=== PATIENT | male | born 1980 | race Caucasian/White ===

== ENCOUNTER → 2018-11-18 | Day surgery (SDC) | payer OTHER ==
--- NOTE | 2018-11-19 15:41 | PATH ---
Cytology Non-Gynecological Report Patient Name: SAUL WINTER Med. Rec. #: [id number] /Age/Gender: 1980 (Age: 38) / M Account: [id number] Location: RADIOLOGY INTER Taken: 11/18/2018 Received: 11/18/2018 Reported: 11/19/2018 Physicians: Dre Dickey M.D. Specimen(s) Received LEFT THYROID FNA Clinical History Left, 5.52 x 3.37 x 4.46 cm Final Diagnosis THYROID, LEFT, FINE NEEDLE ASPIRATION: SATISFACTORY FOR EVALUATION. B[place] CLASS II: BENIGN. CYTOLOGIC FINDINGS ARE CONSISTENT WITH A BENIGN FOLLICULAR NODULE. FOLLICULAR CELLS WITH FOCAL REACTIVE CHANGES AND COLLOID PRESENT. Electronically Signed Amber Garner M.D. Gross Description Received are eight direct smears, four of which are air-dried and Diff-Quik stained, and four of which are alcohol fixed and Pap stained. Also received is 20 ml of bloody formalin from which one cellblock is prepared.
== END | disposition home or self-care (01) ==
LOC: JRADIR 08:50
PROVIDERS: ATTEND Family Medicine
PROC: 0G9K3ZX Drainage of Thyroid Gland, Percutaneous Approach, Diagnostic (ICD-10-PCS; principal; 2018-11-18)
DX: E04.1 Nontoxic single thyroid nodule (principal)
CPT/HCPCS: 76942; 88173; 88305-TC

== ENCOUNTER → 2023-06-17 | Day surgery (SDC) | payer OTHER | END | disposition home or self-care (01) | LOC: JRADIR 10:07 | PROVIDERS: ATTEND Internal Medicine Endocrinology, Diabetes & Metabolism | PROC: 0G9G3ZX Drainage of Left Thyroid Gland Lobe, Percutaneous Approach, Diagnostic (ICD-10-PCS; principal; 2023-06-17) | DX: E04.1 Nontoxic single thyroid nodule (principal) | CPT/HCPCS: 10007; 76942 ==

== ENCOUNTER 2024-01-16 14:42 | Inpatient (IN) | payer OTHER ==
[2024-01-16] MEDS ORDERED: DEXAMETHASONE SOD PHOSPHATE 10 MG/1 ML VIAL ONE ×2 (14:51→14:53)
[2024-01-16] MEDS ORDERED: LIDOCAINE HCL 2% (20ML MULTI-DOSE VIAL) ONE (14:56)
[2024-01-16] MEDS ORDERED: GLYCOPYRROLATE 0.2 MG/1 ML VIAL ONE (15:04)
[2024-01-16] MEDS ORDERED: ALBUTEROL SO4 2.5/IPRATROPIUM 0.5 INH SOL 3 ML VIAL.NEB. NEB ONE (15:10)
[2024-01-16 15:16] LABS: VENOUS BASE EXCESS -6.1 mmol/L (-2-2); VENOUS O2 SATURATION 79.9 % (70-80); VENOUS PCO2 56.4 mmHg (38-52); VENOUS PH 7.214 (7.310-7.410)
[2024-01-16 15:18] LABS: BASO % 0.9 % (0-2.0); HEMATOCRIT 39.4 % (35.4-49); HEMOGLOBIN 12.1 GM/dL (11.7-16.9); LYMPH % 35.2 % (8-40); MCH 25.3 pg (25.7-33.7); MCHC 30.6 g/dl (32.0-35.9); MEAN CELL VOLUME 82.4 fl (80-96); MEAN PLT VOLUME 9.8 fl (7.5-11.1); MONO % 8.9 % (3.8-10.2); PLATELET COUNT 337 10^3/uL (134-434); RBC 4.78 M/mm3 (4.00-5.60); RDW 13.8 % (11.9-15.9); WHITE BLOOD COUNT 19.9 K/mm3 (4.0-10.0)
[2024-01-16] MEDS ORDERED: LABETALOL HCL 20 MG/4 ML VIAL ONE (15:20)
[2024-01-16 15:36] LABS: POTASSIUM 3.6 mmol/L (3.5-5.1)
[2024-01-16 15:40] LABS: CALCIUM 9.3 mg/dL (8.5-10.1)
[2024-01-16 15:41] LABS: ALBUMIN 4.1 g/dl (3.4-5.0); BLOOD UREA NITROGEN 15.9 mg/dL (7-18)
[2024-01-16 15:43] LABS: BILIRUBIN,TOTAL 1.3 mg/dL (0.2-1)
[2024-01-16 15:44] LABS: CREATININE 1.3 mg/dL (0.55-1.3)
[2024-01-16] MEDS ORDERED: KETAMINE HCL 500 MG/10 ML VIAL ONE (15:44)
[2024-01-16 15:46] LABS: TOT PROT 7.5 g/dl (6.4-8.2)
[2024-01-16] MEDS ORDERED: MIDAZOLAM HCL 2 MG/2 ML SINGLE DOSE VIAL ONE ×2 (15:48→16:52)
[2024-01-16] MEDS: GLYCOPYRROLATE 1 MG/5 ML VIAL IVPB ONE (15:50)
[2024-01-16] MEDS: DEXAMETHASONE SOD PHOSPHATE 20 MG/5 ML VIAL IVPB ONE (15:50)
[2024-01-16] MEDS: DEXAMETHASONE SOD PHOSPHATE 10 MG/1 ML VIAL IVPUSH ONE (15:50)
[2024-01-16] MEDS ORDERED: LIDOCAINE 1%/EPI 1:100000 (20 ML MULTI DOSE VIAL) ONE (16:01)
[2024-01-16] MEDS: LIDOCAINE 1%/EPI 1:100000 (20 ML MULTI DOSE VIAL) IJ ONE ×2 (16:05)
[2024-01-16] MEDS ORDERED: ROCURONIUM BROMIDE 50 MG/5 ML SYRINGE ONE ×2 (16:11→16:52)
[2024-01-16] MEDS ORDERED: TRANEXAMIC ACID 1000 MG/10 ML VIAL ONE (16:21)
[2024-01-16] MEDS ORDERED: cefOXitin SODIUM 2 GM VIAL (RESTRICTED TO ID) IVPB ONE (16:26)
[2024-01-16] MEDS: cefOXitin SODIUM 1 GM VIAL (RESTRICTED TO ID) IVPB ONE ×2 (16:26→16:28)
[2024-01-16] MEDS: MICROFIBRILLAR COLLAGEN 1 GM EACH TP ONE (16:45)
[2024-01-16] MEDS: FENTANYL NS IVPB 500 MCG/100 ML BAG IVPB SCH ×2 (18:38→19:49)
[2024-01-16] MEDS: PROPOFOL 1,000,000 MCG/100 ML VIAL IVPB SCH (18:39)
[2024-01-16] MEDS: TRANEXAMIC ACID 1000 MG/10 ML VIAL IVPUSH SCH (19:49)
[2024-01-16] MEDS: ALBUTEROL SO4 2.5/IPRATROPIUM 0.5 INH SOL 3 ML VIAL.NEB. NEB SCH (20:05)
[2024-01-16] MEDS: INSULIN ASPART SLIDING SCALE (NOVOLOG) 1 VIAL SQ SCH (21:43)
[2024-01-16] MEDS: DEXAMETHASONE SOD PHOSPHATE 10 MG/1 ML VIAL IVPUSH SCH (21:46)
[2024-01-16] MEDS: ARTIFICIAL TEARS OPHTHALMIC DROPS OU SCH (21:46)
[2024-01-16] MEDS: MUPIROCIN 2% TOPICAL OINTMENT FOR DECOLONIZATION NS SCH (21:46)
[2024-01-16] MEDS: CHLORHEXIDINE GLUCONATE 4% CLEANSER FOR DECOLONIZATION TP SCH (21:47)
[2024-01-16] MEDS: MIDAZOLAM IN 0.9 % SOD.CHLORID 100 MG/100 ML PLAST..BAG IVPB SCH (23:19)
[2024-01-17] MEDS: CEFOXITIN SODIUM 2 GM in DEXTROSE 5%-WATER - 100 ML IVPB SCH (01:28)
[2024-01-17 06:30] LABS: ARTERIAL BLD GAS O2 SATURATION 97.1 % (95-98); ARTERIAL BLOOD GAS BASE EXCESS -0.2 mmol/L (-2-2); ARTERIAL BLOOD GAS PO2 100.2 mmHg (80-100); ARTERIAL BLOOD GAS pH 7.334 (7.350-7.450)
[2024-01-17 06:34] LABS: VENT MODE V-A/C; VENT RATE 12
[2024-01-17 07:38] LABS: BASO % 0.1 % (0-2.0); HEMATOCRIT 33.3 % (35.4-49); HEMOGLOBIN 10.7 GM/dL (11.7-16.9); LYMPH % 8.1 % (8-40); MCH 25.9 pg (25.7-33.7); MCHC 32.1 g/dl (32.0-35.9); MEAN CELL VOLUME 80.6 fl (80-96); MEAN PLT VOLUME 9.6 fl (7.5-11.1); MONO % 4.4 % (3.8-10.2); NEUT % 87.4 % (42.8-82.8); PLATELET COUNT 274 10^3/uL (134-434); RBC 4.13 M/mm3 (4.00-5.60); RDW 13.9 % (11.9-15.9); WHITE BLOOD COUNT 14.5 K/mm3 (4.0-10.0)
[2024-01-17 07:51] LABS: POTASSIUM 4.6 mmol/L (3.5-5.1)
[2024-01-17 07:58] LABS: ALBUMIN 3.4 g/dl (3.4-5.0); CALCIUM 8.8 mg/dL (8.5-10.1); MAGNESIUM 2.3 mg/dL (1.8-2.4)
[2024-01-17 07:59] LABS: BLOOD UREA NITROGEN 12.7 mg/dL (7-18); PHOSPHOROUS 4.6 mg/dL (2.5-4.9)
[2024-01-17 08:00] LABS: BILIRUBIN,TOTAL 0.9 mg/dL (0.2-1); TOT PROT 6.8 g/dl (6.4-8.2)
[2024-01-17 08:09] LABS: INR 1.02 (0.83-1.09); PROTHROMBIN TIME (PATIENT) 11.5 SEC (9.7-13.0)
[2024-01-17] MEDS: PANTOPRAZOLE SODIUM 40 MG VIAL IVPUSH SCH (09:24)
[2024-01-17] MEDS ORDERED: DEXAMETHASONE SOD PHOSPHATE 10 MG/1 ML VIAL IVPUSH SCH ×2 (10:00)
[2024-01-17] MEDS: PIPERACILLIN/TAZOB 4.5 GM 4.5 GM in DEXTROSE 5%-WATER 100 ML IVPB SCH (17:02)
[2024-01-18 06:40] LABS: POTASSIUM 4.4 mmol/L (3.5-5.1)
[2024-01-18 06:45] LABS: CALCIUM 9.3 mg/dL (8.5-10.1)
[2024-01-18 06:46] LABS: ALBUMIN 3.4 g/dl (3.4-5.0); BLOOD UREA NITROGEN 13.8 mg/dL (7-18); MAGNESIUM 2.6 mg/dL (1.8-2.4)
[2024-01-18 06:51] LABS: TOT PROT 6.6 g/dl (6.4-8.2)
[2024-01-18 06:59] LABS: HEMOGLOBIN 10.3 GM/dL (11.7-16.9); LYMPH % 5.2 % (8-40); MCH 26.1 pg (25.7-33.7); MCHC 32.2 g/dl (32.0-35.9); MEAN CELL VOLUME 80.9 fl (80-96); MEAN PLT VOLUME 9.7 fl (7.5-11.1); MONO % 5.8 % (3.8-10.2); PLATELET COUNT 264 10^3/uL (134-434); RBC 3.95 M/mm3 (4.00-5.60); RDW 13.8 % (11.9-15.9); WHITE BLOOD COUNT 16.8 K/mm3 (4.0-10.0)
[2024-01-18] MEDS: amLODIPine BESYLATE 5 MG TABLET (FP) PO ONE (17:32)
[2024-01-18] MEDS: hydrALAZINE HCL 20 MG/ML VIAL IVPUSH PRN (18:12)
[2024-01-18] MEDS: INSULIN ASPART SLIDING SCALE (NOVOLOG) 1 VIAL SQ SCH (19:32)
[2024-01-19 07:12] LABS: POTASSIUM 4.1 mmol/L (3.5-5.1)
[2024-01-19 07:19] LABS: ALBUMIN 3.5 g/dl (3.4-5.0); BLOOD UREA NITROGEN 20.9 mg/dL (7-18); CALCIUM 9.4 mg/dL (8.5-10.1); MAGNESIUM 2.5 mg/dL (1.8-2.4)
[2024-01-19 07:24] LABS: BILIRUBIN,TOTAL 1.6 mg/dL (0.2-1)
[2024-01-19 07:29] LABS: BASO % 0.3 % (0-2.0); HEMATOCRIT 34.6 % (35.4-49); HEMOGLOBIN 10.6 GM/dL (11.7-16.9); MCHC 30.7 g/dl (32.0-35.9); MEAN CELL VOLUME 81.2 fl (80-96); MEAN PLT VOLUME 9.7 fl (7.5-11.1); MONO % 5.3 % (3.8-10.2); NEUT % 86.4 % (42.8-82.8); PLATELET COUNT 292 10^3/uL (134-434); RBC 4.26 M/mm3 (4.00-5.60); RDW 13.8 % (11.9-15.9); WHITE BLOOD COUNT 17.1 K/mm3 (4.0-10.0)
[2024-01-19] MEDS: LISINOPRIL 10 MG TABLET PO SCH (11:36)
[2024-01-19] MEDS: LEVOTHYROXINE NA 88 MCG TABLET (FP) PO SCH (11:36)
[2024-01-19] MEDS: LEVOTHYROXINE NA 100 MCG TABLET (FP) PO SCH (11:36)
[2024-01-19] MEDS ORDERED: hydrALAZINE HCL 20 MG/ML VIAL IVPUSH PRN (17:25)
[2024-01-19] MEDS: PIPERACILLIN/TAZOB 4.5 GM 4.5 GM in DEXTROSE 5%-WATER 100 ML IVPB SCH (17:49)
[2024-01-19] MEDS: ALBUTEROL SO4 2.5/IPRATROPIUM 0.5 INH SOL 3 ML VIAL.NEB. NEB SCH (19:50)
[2024-01-19] MEDS: DEXAMETHASONE SOD PHOSPHATE 10 MG/1 ML VIAL IVPUSH SCH (21:20)
[2024-01-19] MEDS: INSULIN ASPART SLIDING SCALE (NOVOLOG) 1 VIAL SQ SCH (21:21)
[2024-01-19] MEDS: ROSUVASTATIN CA 20 MG TABLET PO SCH (21:21)
[2024-01-19] MEDS: ARTIFICIAL TEARS OPHTHALMIC DROPS OU SCH (21:22)
[2024-01-19] MEDS ORDERED: CHLORHEXIDINE GLUCONATE 4% CLEANSER FOR DECOLONIZATION TP SCH (22:00)
[2024-01-19] MEDS ORDERED: ROSUVASTATIN CA 20 MG TABLET PO SCH (22:00)
[2024-01-19] MEDS ORDERED: MUPIROCIN 2% TOPICAL OINTMENT FOR DECOLONIZATION NS SCH (22:00)
[2024-01-20] MEDS: LEVOTHYROXINE NA 100 MCG TABLET (FP) PO SCH (06:15)
[2024-01-20] MEDS: LEVOTHYROXINE NA 88 MCG TABLET (FP) PO SCH (06:15)
[2024-01-20] MEDS ORDERED: LEVOTHYROXINE NA 88 MCG TABLET (FP) PO SCH (07:00)
[2024-01-20] MEDS ORDERED: LEVOTHYROXINE NA 100 MCG TABLET (FP) PO SCH (07:00)
[2024-01-20 08:00] LABS: BASO % 0.1 % (0-2.0); HEMATOCRIT 34.2 % (35.4-49); HEMOGLOBIN 10.7 GM/dL (11.7-16.9); LYMPH % 11.3 % (8-40); MCH 25.4 pg (25.7-33.7); MCHC 31.2 g/dl (32.0-35.9); MEAN CELL VOLUME 81.4 fl (80-96); MEAN PLT VOLUME 9.6 fl (7.5-11.1); MONO % 8.1 % (3.8-10.2); NEUT % 80.5 % (42.8-82.8); PLATELET COUNT 284 10^3/uL (134-434); RBC 4.21 M/mm3 (4.00-5.60); RDW 13.6 % (11.9-15.9)
[2024-01-20 08:21] LABS: POTASSIUM 4.2 mmol/L (3.5-5.1)
[2024-01-20 08:22] LABS: ALBUMIN 3.4 g/dl (3.4-5.0); CALCIUM 9.1 mg/dL (8.5-10.1)
[2024-01-20 08:23] LABS: BLOOD UREA NITROGEN 20.2 mg/dL (7-18); MAGNESIUM 2.4 mg/dL (1.8-2.4)
[2024-01-20 08:28] LABS: TOT PROT 6.9 g/dl (6.4-8.2)
[2024-01-20] MEDS: LISINOPRIL 10 MG TABLET PO SCH (11:20)
[2024-01-20] MEDS: DEXAMETHASONE SOD PHOSPHATE 10 MG/1 ML VIAL IVPUSH SCH (17:54)
[2024-01-20 22:28] VITALS: TEMP 98.2
[2024-01-21 08:21] LABS: HEMATOCRIT 34.6 % (35.4-49); MCH 25.6 pg (25.7-33.7); MCHC 31.8 g/dl (32.0-35.9); MEAN CELL VOLUME 80.5 fl (80-96); MEAN PLT VOLUME 9.5 fl (7.5-11.1); PLATELET COUNT 296 10^3/uL (134-434); RDW 13.8 % (11.9-15.9); WHITE BLOOD COUNT 20.6 K/mm3 (4.0-10.0)
[2024-01-21 08:33] LABS: BLOOD UREA NITROGEN 22.7 mg/dL (7-18)
[2024-01-21 08:36] LABS: CREATININE 0.9 mg/dL (0.55-1.3)
[2024-01-21 10:17] LABS: ANISOCYTOSIS 3+; MACROCYTOSIS 0
[2024-01-21 11:22] VITALS: BMI 32.7
[2024-01-21 14:00] VITALS: BP 110/79; PULSE 65; RESP 20
== END 2024-01-21 15:49 | disposition home or self-care (01) | DRG 813 ==
LOC: JER 14:42 → JICU 17:55 → JER 18:32 → J7W 01-19 17:28
PROVIDERS: ADMIT Internal Medicine Pulmonary Disease; ATTEND Nurse Practitioner
PROC: 5A1945Z Respiratory Ventilation, 24-96 Consecutive Hours (ICD-10-PCS; 2024-01-16)
PROC: 0BH17EZ Insertion of Endotracheal Airway into Trachea, Via Natural or Artificial Opening (ICD-10-PCS; 2024-01-16)
PROC: 0JC40ZZ Extirpation of Matter from Right Neck Subcutaneous Tissue and Fascia, Open Approach (ICD-10-PCS; principal; 2024-01-16 15:51)
DX: L76.32 Postprocedural hematoma of skin and subcutaneous tissue following other procedure (principal); J96.00 Acute respiratory failure, unspecified whether with hypoxia or hypercapnia; E78.5 Hyperlipidemia, unspecified; I10 Essential (primary) hypertension; S10.93XA Contusion of unspecified part of neck, initial encounter; D62 Acute posthemorrhagic anemia; E66.9 Obesity, unspecified; Z68.32 Body mass index [BMI] 32.0-32.9, adult; Y83.9 Surgical procedure, unspecified as the cause of abnormal reaction of the patient, or of later complication, without mention of misadventure at the time of the procedure; X58.XXXA Exposure to other specified factors, initial encounter; Y93.9 Activity, unspecified; Y92.89 Other specified places as the place of occurrence of the external cause; Y99.9 Unspecified external cause status
CPT/HCPCS: 36415; 36600; 71045-TC-FY; 80048; 80053; 82803; 82962; 83735; 84100; 84443; 84484; 85025; 85610; 87635; 93005; 93010; 94002; 94010; 94640; 94760; 99285-25; J1100